=== PATIENT | female | born 1930 | race Caucasian/White ===

== ENCOUNTER → 2016-08-16 | Day surgery (SDC) | payer MEDICARE, OTHER ==
[~2016-08-16] MED LIST: ACETAMINOPHEN/HYDROcodone 325 MG/5 MG TAB ONE; BUPIVACAINE/EPINEPHRINE 0.25% PF 10 ML VIAL ONE; LACTATED RINGER'S 1000 ML INJ 1,000 ML ONE; MIDAZOLAM HCL 2 MG/2 ML VIAL ONE; ONDANSETRON HCL 4 MG/2 ML VIAL IV PUSH ONE; PROPOFOL 200 MG/20 ML AMP IV ONE; ceFAZolin 2 GM PREMIX 50 ML ONE
--- NOTE | 2016-08-16 10:52 | TN ---
cc: MARQUES REYNOLDS M.D. DATE OF SURGERY 08/16/2016 PREOPERATIVE DIAGNOSIS Umbilical and epigastric hernias, incarcerated. POSTOPERATIVE DIAGNOSIS Umbilical and epigastric hernias, incarcerated. PROCEDURE Open repair incarcerated epigastric and umbilical hernias with mesh. SURGEON Dr. Marques Reynolds MERCHANDISE MANAGER Caroline Ren, SUZE ANESTHESIA General. INDICATIONS This is a very pleasant 86-year-old woman with a 3-4 month history of a bulge in the upper midline abdomen. It used to go away but now it stays bulging out. She has had no obstructive symptoms, no nausea or vomiting and she has had normal bowel and bladder function. She has also been told she has an umbilical hernia. She has brothers who have had hernias. She has had no prior abdominal surgery. Physical exam shows a small reducible umbilical hernia, an irreducible epigastric hernia with mild tenderness. Plans were made for operative repair. INTRAOPERATIVE FINDINGS Incarcerated herniated fat at both the umbilicus and the epigastric area. Hernia fat excised and discarded. ESTIMATED BLOOD LOSS Minimal. NOTE This procedure was assisted by my nurse practitioner. The skill set of an BUTADIENE CONVERTER UTILITY OPERATOR was medically necessary to provide appropriate visualization and efficiency in the completion of the operative procedure. The surgical assistant certified was at the back table providing appropriate instrumentation while the nurse practitioner directly assisted me through the entirety of the procedure. DESCRIPTION OF PROCEDURE IN DETAIL The patient was identified as Trisha Serna, taken to the operating room, placed in supine position. Sequential compression devices were placed on the bilateral lower extremities. Following induction of adequate general anesthesia, the patient's abdomen was prepped and draped in the usual sterile fashion with Betadine. A time-out procedure was performed. Following completion of the time-out procedure to everyone's satisfaction within the room, proposed supraumbilical transverse incision was made with a marking pen and infiltrated with local anesthetic. The incision was carried out with scalpel and hemostasis controlled with electrocautery. Dissection continued superiorly to separate the herniated preperitoneal fatty tissue from the subcutaneous fatty tissue. This was performed. The defect in the fascia about 2 cm in size was identified. The surrounding fat was cleared and the herniated tissue was cross-clamped with a [place] clamp and suture ligated at its base with 2-0 Vicryl suture ligature after amputating the redundant fat with electrocautery. Attention was then turned to dissecting the umbilical skin off of the herniated preperitoneal fat at the umbilicus. This was performed in a similar fashion using sharp dissection electrocautery only on small bleeding points. The herniated fat was irreducible. It was cross-clamped at its base with a hemostat and redundant fat amputated with electrocautery and suture ligated the space with 2-0 Vicryl suture ligature. Each of the two fascial defects was approximated with interrupted inverted 0 Prolene sutures. The anterior fascia was cleared and a 6 x 8-cm piece of Atrium ProLite mesh was cut from a 7.5 x 15-cm piece and placed in onlay position, held in place taut eight interrupted 0 Ethibond sutures. Sutures were placed at the 12 and 6 o'clock and 3 and 9 o'clock positions and then at each corner of the mesh. Irrigation ensued. There was no evidence of bleeding. The umbilicus was reformed with two interrupted 2-0 Vicryl sutures. 2-0 Vicryl was used to quilt down the subcutaneous fatty tissue over the previous site of the epigastric hernia. A 3-0 Vicryl was placed in the subcutaneous fatty tissue beneath the incision line. The incision was approximated with a running 4-0 Monocryl subcuticular suture. Dressings were applied with Mastisol and 1/2-inch brown Steri-Strips. Gauze and Tegaderm and abdominal binder completed the dressing. The patient tolerated the procedure without apparent complication. Sponge, needle and instrument counts were correct at the end of the case. MD SHADY Singh/JUNE /10:32 AM /10:44 AM
== END | disposition home or self-care (01) ==
LOC: ESDC 07:47
PROVIDERS: ATTEND Surgery Trauma Surgery
DX: K43.6 Other and unspecified ventral hernia with obstruction, without gangrene (principal); K42.0 Umbilical hernia with obstruction, without gangrene
CPT/HCPCS: 00750; 49572; 49587; C1781; J0690; J2250; J2405; J3010; J7120